=== PATIENT | female | born 1990 | race Caucasian/White ===

== ENCOUNTER 2017-11-08 15:58 | Emergency (ER) | payer MEDICAID ==
[~2017-11-08] VITALS: Ht 160 cm; Wt 62.1 kg
[2017-11-08 17:08] VITALS: Ht 160 cm; Wt 62.1 kg
[2017-11-08 21:26] VITALS: BP 111/62
== END 2017-11-08 21:26 | disposition home or self-care (01) ==
LOC: ED 15:58
DX: S16.1XXA Strain of muscle, fascia and tendon at neck level, initial encounter (principal); S46.912A Strain of unspecified muscle, fascia and tendon at shoulder and upper arm level, left arm, initial encounter; R51 Headache; Y04.8XXA Assault by other bodily force, initial encounter; Y93.89 Activity, other specified; Y99.8 Other external cause status; Y92.89 Other specified places as the place of occurrence of the external cause
CPT/HCPCS: J1885

== ENCOUNTER 2018-07-03 13:22 | Emergency (ER) | payer MEDICAID ==
[~2018-07-03] VITALS: Ht 160 cm; Wt 68.5 kg
[2018-07-03 13:47] VITALS: Ht 160 cm; Wt 68.5 kg
[2018-07-03 15:00] LABS: BASOPHIL % 0.6 % (0-2); PLATELET COUNT 360 x10^3mcL (130-400); RED CELL DISTRIBUTION WIDTH 14.3 % (11.5-14.5)
[2018-07-03 15:04] LABS: CALCIUM 9.1 mg/dL (8.5-10.1); CARBON DIOXIDE 25.5 mmol/L (21-32); CHLORIDE SERUM 108 mmol/L (98-107); CREATININE SERUM 0.6 mg/dL (0.6-1.0); GFR1 > 60 mL/min; GLUCOSE SERUM 93 mg/dL (74-106); POTASSIUM SERUM 3.3 mmol/L (3.5-5.1); SODIUM SERUM 145 mmol/L (136-145)
[2018-07-03 15:10] LABS: ALBUMIN 3.8 g/dL (3.4-5.0); ALKALINE PHOSPHATASE 96 U/L (46-116); ALT/SGPT 22 U/L (14-59); AST/SGOT 13 U/L (15-37); TOTAL PROTEIN, SERUM 7.8 g/dL (6.4-8.2)
[2018-07-03 15:18] VITALS: BP 112/70
== END 2018-07-03 15:59 | disposition home or self-care (01) ==
LOC: ED 13:22
PROVIDERS: Emergency Medicine
DX: N39.0 Urinary tract infection, site not specified (principal); R30.0 Dysuria; R35.0 Frequency of micturition
CPT/HCPCS: 36415; J1885

== ENCOUNTER 2019-01-24 21:32 | Emergency (ER) | payer MEDICAID ==
[~2019-01-24] VITALS: Ht 160 cm; Wt 69.9 kg
[2019-01-24 21:57] VITALS: Ht 160 cm; Wt 69.9 kg
[2019-01-24 22:38] LABS: BASOPHIL % 0.4 % (0-2); PLATELET COUNT 377 x10^3mcL (130-400); RED CELL DISTRIBUTION WIDTH 13.9 % (11.5-14.5)
[2019-01-24 22:49] LABS: CALCIUM 9.3 mg/dL (8.5-10.1); CHLORIDE SERUM 103 mmol/L (98-107); CREATININE SERUM 0.7 mg/dL (0.6-1.0); GFR1 > 60 mL/min; GLUCOSE SERUM 95 mg/dL (74-106); POTASSIUM SERUM 3.3 mmol/L (3.5-5.1); SODIUM SERUM 141 mmol/L (136-145)
[2019-01-24 22:54] LABS: ALBUMIN 4.2 g/dL (3.4-5.0); ALKALINE PHOSPHATASE 116 U/L (46-116); ALT/SGPT 37 U/L (14-59); AMYLASE 70 U/L (25-115); AST/SGOT 13 U/L (15-37); BILIRUBIN TOTAL 0.3 mg/dL (0.20-1.00); LIPASE 148 IU/L (73-393)
[2019-01-24 22:55] LABS: TOTAL PROTEIN, SERUM 8.6 g/dL (6.4-8.2)
[2019-01-24 23:46] VITALS: BP 123/59
== END 2019-01-25 00:15 | disposition home or self-care (01) ==
LOC: ED 21:32
DX: R10.31 Right lower quadrant pain (principal); R11.0 Nausea
CPT/HCPCS: 36415; Q0092

== ENCOUNTER 2019-06-02 22:06 | Emergency (ER) | payer MEDICAID ==
[~2019-06-02] VITALS: Ht 160 cm; Wt 71.7 kg
[2019-06-02 22:11] VITALS: Ht 160 cm; Wt 71.7 kg
[2019-06-03 00:31] VITALS: BP 116/76
== END 2019-06-03 00:31 | disposition home or self-care (01) ==
LOC: ED 22:06
DX: R07.89 Other chest pain (principal); R06.02 Shortness of breath; R11.0 Nausea
CPT/HCPCS: Q0092

== ENCOUNTER 2019-12-31 17:43 | Emergency (ER) | payer MEDICAID ==
[~2019-12-31] VITALS: Ht 165.1 cm; Wt 71.7 kg
[2019-12-31 17:59] VITALS: Ht 165.1 cm; Wt 71.7 kg
[2019-12-31 19:20] LABS: BASOPHIL % 0.5 % (0-2); PLATELET COUNT 343 x10^3mcL (130-400); RED CELL DISTRIBUTION WIDTH 13.8 % (11.5-14.5)
[2019-12-31 19:41] LABS: CALCIUM 9.3 mg/dL (8.5-10.1); CARBON DIOXIDE 25.5 mmol/L (21-32); CHLORIDE SERUM 107 mmol/L (98-107); CREATININE SERUM 0.6 mg/dL (0.6-1.0); GFR1 > 60 mL/min; GLUCOSE SERUM 87 mg/dL (74-106); POTASSIUM SERUM 3.9 mmol/L (3.5-5.1); SODIUM SERUM 141 mmol/L (136-145)
[2019-12-31 19:43] LABS: ALBUMIN 3.8 g/dL (3.4-5.0); ALKALINE PHOSPHATASE 101 U/L (46-116); ALT/SGPT 51 U/L (14-59); AST/SGOT 20 U/L (15-37); BILIRUBIN TOTAL 0.2 mg/dL (0.20-1.00); LIPASE 167 IU/L (73-393); TOTAL PROTEIN, SERUM 8.2 g/dL (6.4-8.2)
[2019-12-31 20:36] VITALS: BP 103/59
== END 2019-12-31 20:36 | disposition home or self-care (01) ==
LOC: ED 17:43
PROVIDERS: Emergency Medicine
DX: R10.33 Periumbilical pain (principal); R14.0 Abdominal distension (gaseous)
CPT/HCPCS: 36415